=== PATIENT | female | born 1975 | race Caucasian/White ===

== ENCOUNTER 2022-08-28 23:33 | Observation (INO) | payer BC ==
[2022-08-28 23:47] VITALS: RESP 18
[2022-08-28] MEDS ORDERED: oxyCODONE HCL 5 MG TABLET PO ONE (23:47)
[2022-08-28] MEDS ORDERED: ACETAMINOPHEN 325 MG TABLET (FP) PO ONE (23:47)
[2022-08-29] MEDS ORDERED: ASPIRIN 81 MG CHEWABLE TABLETS ONE (00:03)
[2022-08-29] MEDS ORDERED: ASPIRIN 81 MG CHEWABLE TABLETS PO ONE (00:21)
[2022-08-29 01:32] LABS: CHLORIDE 103 mmol/L (98-107); SODIUM 139 mmol/L (136-145)
[2022-08-29 01:34] LABS: ALBUMIN 3.5 g/dl (3.4-5.0); ANION GAP 8 MMOL/L (8-16); BLOOD UREA NITROGEN 19.9 mg/dL (7-18); CALCIUM 9.4 mg/dL (8.5-10.1); CO2 29 mmol/L (21-32)
[2022-08-29 01:35] LABS: GLUCOSE,RANDOM 99 mg/dL (74-106)
[2022-08-29 01:37] LABS: SGOT/AST 23 U/L (15-37); SGPT/ALT 21 U/L (13-61)
[2022-08-29 01:39] LABS: BILIRUBIN,TOTAL 0.3 mg/dL (0.2-1)
[2022-08-29 01:41] LABS: ALK PHOS 67 U/L (45-117)
[2022-08-29 01:42] LABS: BASO % 0.8 % (0-2.0); EOS % 1.3 % (0-4.5); HEMATOCRIT 37.4 % (32.4-45.2); HEMOGLOBIN 12.3 GM/dL (10.7-15.3); LYMPH % 19.6 % (8-40); MCH 30.9 pg (25.7-33.7); MCHC 32.9 g/dl (32.0-36.0); MEAN CELL VOLUME 93.8 fl (80-96); MEAN PLT VOLUME 9.2 fl (7.5-11.1); MONO % 9.1 % (3.8-10.2); NEUT % 69.2 % (42.8-82.8); PLATELET COUNT 243 10^3/uL (134-434); RBC 3.99 M/mm3 (3.60-5.2); RDW 13.8 % (11.6-15.6); WHITE BLOOD COUNT 8.4 K/mm3 (4.0-10.0)
[2022-08-29] MEDS ORDERED: ENOXAPARIN NA (PORCINE) 40 MG/0.4 ML DISP.SYRIN SQ ONE (02:13)
[2022-08-29] MEDS ORDERED: SODIUM CHLORIDE 0.9% 500 ML INFUS.BAG IV ONE (02:45)
[2022-08-29 05:21] LABS: INR 0.91 (0.83-1.09); PROTHROMBIN TIME (PATIENT) 10.4 SEC (9.7-13.0)
[2022-08-29 06:55] VITALS: BMI 20.1
[2022-08-29 08:18] LABS: HEMATOCRIT 34.2 % (32.4-45.2); HEMOGLOBIN 11.7 G/dL (10.7-15.3); MCH 32.5 pg (25.7-33.7); MCHC 34.2 g/dl (32.0-36.0); MEAN CELL VOLUME 94.9 fl (80-96); MEAN PLT VOLUME 8.4 fl (7.5-11.1); PLATELET COUNT 219.8 10^3/uL (134-434); RDW 13.8 % (11.6-15.6); WHITE BLOOD COUNT 6.8 10^3/uL (4.0-10.8)
[2022-08-29 08:23] LABS: CALCIUM 8.7 mg/dl (8.5-10); CREATININE 0.9 mg/dl (0.55-1.3)
[2022-08-29] MEDS ORDERED: ACETAMINOPHEN 325 MG TABLET (FP) PO PRN (08:31)
[2022-08-29] MEDS ORDERED: ASPIRIN 81 MG CHEWABLE TABLETS PO SCH (10:00)
[2022-08-29] MEDS ORDERED: IBUPROFEN 600 MG TABLET (FP) PO SCH (12:00)
[2022-08-29] MEDS ORDERED: ENOXAPARIN NA (PORCINE) 40 MG/0.4 ML DISP.SYRIN SQ SCH (13:00)
[2022-08-29 15:26] VITALS: BP 105/67; PULSE 47; TEMP 98.8
== END 2022-08-29 16:55 | disposition home or self-care (01) ==
LOC: FER 23:33 → FM/S 08-29 06:29 → INTOOBSV 08-29 06:29
PROVIDERS: ADMIT Internal Medicine; ATTEND Internal Medicine
PROC: 3E023GC Introduction of Other Therapeutic Substance into Muscle, Percutaneous Approach (ICD-10-PCS; principal; 2022-08-29)
PROC: 3E0337Z Introduction of Electrolytic and Water Balance Substance into Peripheral Vein, Percutaneous Approach (ICD-10-PCS; 2022-08-29)
DX: R09.1 Pleurisy (principal); Q21.10 Atrial septal defect, unspecified; I24.8 Other forms of acute ischemic heart disease; M79.18 Myalgia, other site
CPT/HCPCS: 36415; 71045-TC-FY; 71275-TC; 80048; 80053; 82465; 83718; 83721; 84484; 84703; 85025; 85027; 85379; 85610; 93005; 93010; 93306-TC; 96360; 96372; 99285-25; C9803-CS; G0378; Q9967; U0003; U0005